=== PATIENT | male | born 1970 | race Caucasian/White ===

== ENCOUNTER 2017-07-30 21:15 | Emergency (ER) | payer BC ==
[2017-07-30] MEDS ORDERED: ASPIRIN PO ONE (21:38)
[2017-07-30 22:01] LABS: Basophils # (Auto) 0.1 K/mm3 (0.0-0.1); Basophils % (Auto) 0.9 % (0.0-1.8); Eosinophils # (Auto) 0.3 K/mm3 (0.0-0.4); Eosinophils % (Auto) 4.3 % (0.0-4.3); Hematocrit 42.8 % (35.5-45.6); Hemoglobin 14.1 gm/dl (11.8-15.2); Lymphocytes # (Auto) 2.5 K/mm3 (1.2-5.4); Lymphocytes % (Auto) 31.4 % (13.4-35.0); Mean Corpuscular HGB Conc 33 % (32-34); Mean Corpuscular Hemoglobin 28 pg (28-32); Mean Corpuscular Volume 85 fl (84-94); Monocytes # (Auto) 0.5 K/mm3 (0.0-0.8); Monocytes % (Auto) 5.8 % (0.0-7.3); Platelet Count 185 K/mm3 (140-440); Red Blood Count 5.06 M/mm3 (3.65-5.03); Red Cell Distribution Width 12.9 % (13.2-15.2)
[2017-07-30 22:22] LABS: BUN/Creatinine Ratio 20; Blood Urea Nitrogen 14 mg/dL (9-20); Calcium 9.3 mg/dL (8.4-10.2); Hemolysis Index 55
--- NOTE | 2017-07-31 09:38 | XRay Report ---
CHEST TWO VIEWS: 07/31/17 CLINICAL: Shortness of breath. COMPARISON: None FINDINGS: Normal heart. Prominent left hilum suggesting a possible left hilar mass. The pulmonary vessels are normal. The lungs are normally expanded and clear. Degenerative changes in the spine. IMPRESSION: Possible left hilar mass. Recommend CT chest without contrast to exclude mass. No CHF or pneumonia.
[2017-07-31] MEDS ORDERED: SUBLIMAZE IV ONE (10:09)
[2017-07-31] MEDS ORDERED: NACL 0.9% 500 ML 500 ML IV ONE (10:09)
--- NOTE | 2017-07-31 10:15 | Emergency Department Report ---
ED General Adult HPI - General Chief complaint: Chest Pain Stated complaint: CP; SOB Time Seen by Provider: 07/31/17 10:05 Source: patient, RN notes reviewed Mode of arrival: Ambulatory Limitations: No Limitations - History of Present Illness Initial comments: This is a 47-year-old male, the patient is previously unknown to this provider, the patient endorses a history of left thoracic pain which has been present for a few days. Contrary to what is documented in triage note, patient denies chest pain, and he denies severe shortness of breath. He denies pulmonary embolus DVT risk factors, he denies like pain and leg swelling, hematemesis and bright red blood per rectum, he denies night sweats, and he denies unintentional weight loss, and he denies fatigue. His pain is achy, and does not have exacerbating or relieving factors, and he indicates that it does not radiate anywhere. Lower abdominal pain, and no urinary symptoms. -: Gradual Location: back Radiation: non-radiation Severity scale (0 -10): 4 Consistency: intermittent Improves with: none Worsens with: none Associated Symptoms: denies other symptoms. denies: confusion, chest pain, cough, diaphoresis, fever/chills, headaches, loss of appetite, malaise, nausea/ vomiting, rash, seizure, shortness of breath, syncope, weakness - Related Data Previous Rx's Medication Instructions Recorded Last Taken Type Acetaminophen [Tylenol Arthritis] 650 mg PO Q6HR PRN #30 tablet.er 07/31/17 Unknown Rx Ibuprofen [Motrin] 600 mg PO Q8H PRN #30 tablet 07/31/17 Unknown Rx Ondansetron [Zofran Odt] 4 mg PO Q8HR PRN #20 tab.rapdis 07/31/17 Unknown Rx Allergies Allergy/AdvReac Type Severity Reaction Status Date / Time No Known Allergies Allergy Verified 07/30/17 21:38 ED Review of Systems ROS: Stated complaint: CP; SOB Other details as noted in HPI ED Past Medical Hx - Past Medical History Previous Medical History?: No - Surgical History Past Surgical History?: No - Social History Smoking Status: Current Every Day Smoker Substance Use Type: None - Medications Home Medications: Home Medications Medication Instructions Recorded Confirmed Last Taken Type Acetaminophen [Tylenol Arthritis] 650 mg PO Q6HR PRN #30 tablet.er 07/31/17 Unknown Rx Ibuprofen [Motrin] 600 mg PO Q8H PRN #30 tablet 07/31/17 Unknown Rx Ondansetron [Zofran Odt] 4 mg PO Q8HR PRN #20 tab.rapdis 07/31/17 Unknown Rx ED Physical Exam - General Limitations: No Limitations General appearance: alert, in no apparent distress - Head Head exam: Present: atraumatic, normocephalic - Eye Eye exam: Present: normal appearance, EOMI - ENT ENT exam: Present: normal exam, normal orophraynx, mucous membranes moist, normal external ear exam - Neck Neck exam: Present: normal inspection - Respiratory Respiratory exam: Present: normal lung sounds bilaterally. Absent: respiratory distress - Cardiovascular Cardiovascular Exam: Present: regular rate, normal rhythm, normal heart sounds. Absent: systolic murmur, diastolic murmur, rubs, gallop - GI/Abdominal GI/Abdominal exam: Present: soft, normal bowel sounds. Absent: distended, tenderness, guarding, rebound, rigid, pulsatile mass - Rectal Rectal exam: Present: deferred - Extremities Exam Extremities exam: Present: normal inspection, full ROM, normal capillary refill. Absent: tenderness, pedal edema, joint swelling - Back Exam Back exam: Present: normal inspection, full ROM. Absent: tenderness, CVA tenderness (R), paraspinal tenderness, vertebral tenderness - Neurological Exam Neurological exam: Present: alert, oriented X3, CN II-XII intact, normal gait, other (Extraocular movements intact. Tongue midline. No facial droop. Facial sensation intact to light touch in the V1, V2, V3 distribution bilaterally. 5 and 5 strength in 4 extremities.. Sensation is intact to light touch in 4 extremities.). Absent: motor sensory deficit - Psychiatric Psychiatric exam: Present: normal affect, anxious - Skin Skin exam: Present: warm, dry, intact, normal color. Absent: rash ED Course Vital Signs 07/30/17 07/31/17 07/31/17 21:34 03:19 07:42 Temperature 98.5 F 98.0 F 98.3 F Pulse Rate 76 76 83 Respiratory 18 20 16 Rate Blood Pressure 166/94 154/105 156/97 Blood Pressure [Right] O2 Sat by Pulse 97 98 100 Oximetry 07/31/17 07/31/17 09:05 12:57 Temperature Pulse Rate 66 82 Respiratory 20 18 Rate Blood Pressure Blood Pressure 148/98 140/77 [Right] O2 Sat by Pulse 97 97 Oximetry ED Medical Decision Making - Lab Data Result diagrams: 07/30/17 21:46 07/30/17 21:46 Vital Signs 07/30/17 07/31/17 07/31/17 21:34 03:19 07:42 Temperature 98.5 F 98.0 F 98.3 F Pulse Rate 76 76 83 Respiratory 18 20 16 Rate Blood Pressure 166/94 154/105 156/97 Blood Pressure [Right] O2 Sat by Pulse 97 98 100 Oximetry 07/31/17 09:05 Temperature Pulse Rate 66 Respiratory 20 Rate Blood Pressure Blood Pressure 148/98 [Right] O2 Sat by Pulse 97 Oximetry Lab Results 07/30/17 07/30/17 07/31/17 Range/Units 21:46 21:46 00:16 WBC 7.8 (4.5-11.0) K/mm3 RBC 5.06 H (3.65-5.03) M/mm3 Hgb 14.1 (11.8-15.2) gm/dl Hct 42.8 (35.5-45.6) % MCV 85 (84-94) fl MCH 28 (28-32) pg MCHC 33 (32-34) % RDW 12.9 L (13.2-15.2) % Plt Count 185 (140-440) K/mm3 Lymph % (Auto) 31.4 (13.4-35.0) % Day % (Auto) 5.8 (0.0-7.3) % Eos % (Auto) 4.3 (0.0-4.3) % Baso % (Auto) 0.9 (0.0-1.8) % Lymph # 2.5 (1.2-5.4) K/mm3 Day # 0.5 (0.0-0.8) K/mm3 Eos # 0.3 (0.0-0.4) K/mm3 Baso # 0.1 (0.0-0.1) K/mm3 Seg Neutrophils % 57.6 (40.0-70.0) % Seg Neutrophils # 4.5 (1.8-7.7) K/mm3 Sodium 138 (137-145) mmol/L Potassium 4.6 (3.6-5.0) mmol/L Chloride 97.2 L (98-107) mmol/L Carbon Dioxide 28 (22-30) mmol/L Anion Gap 17 mmol/L BUN 14 (9-20) mg/dL Creatinine 0.7 L (0.8-1.5) mg/dL Estimated GFR > 60 ml/min BUN/Creatinine Ratio 20 % Glucose 108 H (75-100) mg/dL Calcium 9.3 (8.4-10.2) mg/dL Troponin T < 0.010 < 0.010 (0.00-0.029) ng/mL Urine Color (Yellow) Urine Turbidity (Clear) Urine pH (5.0-7.0) Ur Specific [place] (1.003-1.030) Urine Protein (Negative) mg/dL Urine Glucose (UA) (Negative) mg/dL Urine Ketones (Negative) mg/dL Urine Blood (Negative) Urine Nitrite (Negative) Urine Bilirubin (Negative) Urine Urobilinogen (<2.0) mg/dL Ur Leukocyte Esterase (Negative) Urine WBC (Auto) (0.0-6.0) /HPF Urine RBC (Auto) (0.0-6.0) /HPF Urine Mucus /HPF 07/31/17 07/31/17 Range/Units 03:17 10:33 WBC (4.5-11.0) K/mm3 RBC (3.65-5.03) M/mm3 Hgb (11.8-15.2) gm/dl Hct (35.5-45.6) % MCV (84-94) fl MCH (28-32) pg MCHC (32-34) % RDW (13.2-15.2) % Plt Count (140-440) K/mm3 Lymph % (Auto) (13.4-35.0) % Day % (Auto) (0.0-7.3) % Eos % (Auto) (0.0-4.3) % Baso % (Auto) (0.0-1.8) % Lymph # (1.2-5.4) K/mm3 Day # (0.0-0.8) K/mm3 Eos # (0.0-0.4) K/mm3 Baso # (0.0-0.1) K/mm3 Seg Neutrophils % (40.0-70.0) % Seg Neutrophils # (1.8-7.7) K/mm3 Sodium (137-145) mmol/L Potassium (3.6-5.0) mmol/L Chloride (98-107) mmol/L Carbon Dioxide (22-30) mmol/L Anion Gap mmol/L BUN (9-20) mg/dL Creatinine (0.8-1.5) mg/dL Estimated GFR ml/min BUN/Creatinine Ratio % Glucose (75-100) mg/dL Calcium (8.4-10.2) mg/dL Troponin T < 0.010 (0.00-0.029) ng/mL Urine Color Yellow (Yellow) Urine Turbidity Clear (Clear) Urine pH 5.0 (5.0-7.0) Ur Specific [place] 1.024 (1.003-1.030) Urine Protein <15 mg/dl (Negative) mg/dL Urine Glucose (UA) Neg (Negative) mg/dL Urine Ketones Neg (Negative) mg/dL Urine Blood Neg (Negative) Urine Nitrite Neg (Negative) Urine Bilirubin Neg (Negative) Urine Urobilinogen < 2.0 (<2.0) mg/dL Ur Leukocyte Esterase Neg (Negative) Urine WBC (Auto) 1.0 (0.0-6.0) /HPF Urine RBC (Auto) 2.0 (0.0-6.0) /HPF Urine Mucus Few /HPF - EKG Data -: EKG Interpreted by Sd EKG shows normal: sinus rhythm Rate: normal - EKG Data 07/31/17 12:05 EKG #1 demonstrates sinus, 71 bpm, normal intervals, normal axis, not morphologically consistent with ST elevation myocardial infarction, repeat EKG is also unchanged and unremarkable - Radiology Data Radiology results: report reviewed, image reviewed Print Report Referring Physician: MICHELLE MARINELLI Patient Name: ARMIN FLORES Date of : 1970 Sex: Male Report Date: 2017-07-31 Report Status: Finalized Findings [facility] [address] [place] [address] Cat Scan Report Signed Patient: ARMIN FLORES JR MR#: [id number] : 1970 Acct:[id number] Age/Sex: 47 / M ADM Date: 07/30/17 Loc: ED Attending Dr: Ordering Physician: MICHELLE MARINELLI MD Date of Service: 07/31/17 Procedure(s): CT angio chest Accession Number(s): [id number] cc: MIHCELLE MARINELLI MD CTA CHEST WITH CONTRAST: 07/31/17 10:09:00 CLINICAL: Left chest pain. TECHNIQUE: PE protocol with volumetric acquisition and 1.25 mm scan reconstructions after the uneventful intravenous injection of 100 cc Omnipaque 350. Consent was obtained prior to the administration of contrast. Volume rendered images of the pulmonary vasculature were obtained and reviewed. FINDINGS: Satisfactory opacification of the pulmonary arteries and no pulmonary artery thrombus identified. Normal heart and aorta. The lungs are clear. No airspace disease or pleural effusion. No pulmonary nodule or mass. A right hilar lymph node (or nodes) measures 2.6 x 1.3 cm. A left hilar lymph node measures 1.2 x 1.2 cm. In AP window lymph node measures 1.5 x 1.0 cm. No other mediastinal lymph nodes are identified. Normal thyroid, trachea and esophagus. The upper abdomen is remarkable for a few prominent celiac lymph nodes. A portal caval lymph node is the largest upper abdominal lymph node and measures 2.1 x 1.7 cm. The bones and soft tissues are normal. IMPRESSION: No pulmonary embolus. Nonspecific mildly enlarged hilar lymph nodes and upper abdominal lymph nodes. Transcribed By: REF Dictated By: RON DODD MD Electronically Authenticated By: RON DODD MD Signed Date/Time: 07/31/17 113 DD/ 112 TD/TT: 07/31/17 1132 - Medical Decision Making Differential diagnosis, including not limited to: Pulmonary embolus, pneumonia, pleuritis, myocarditis, pericarditis X Assessment and plan: 47-year-old male, who has no pulmonary embolus or DVT risk factors, low risk by well's criteria, who presents with a complaint of nontraumatic left sided posterior thoracic pain. He denies night sweats, fevers , chills, unintentional weight loss and constitutional symptoms. To me, the patient makes no complaint of chest pain, no complaint of shortness of breath, his EKG is morphologically unremarkable, troponins were negative 3, and based on the patient's history and physical exam, I find the patient to be low risk by GLADYS score, low risk by heart score. Urinalysis negative, no abdominal tenderness, CT scan of the chest x-rays nonspecific adenopathy. Patient felt improved after pain medication and IV fluids. Patient is given a copy of his CT scan report, He is also given a disc with his CT scan images, and he will be referred to outpatient primary care, pulmonology, oncology for further evaluation and management for his undifferentiated adenopathy. Return precautions are reviewed. Critical care attestation.: If time is entered above; I have spent that time in minutes in the direct care of this critically ill patient, excluding procedure time. ED Disposition Clinical Impression: Adenopathy Disposition: DC-01 TO HOME OR SELFCARE Is pt being admited?: No Does the pt Need Aspirin: No Condition: Stable Instructions: Lymphadenopathy (ED) Additional Instructions: Laboratory studies were unremarkable. CT scan of the chest demonstrated nonspecific lymph nodes in the chest and upper abdominal region. Patient is given a copy of CT scan report, and a disc with his CT scan images. I recommend that the patient follow-up with either an outpatient primary care doctor, oncologist or learning development specialist within the next 2 weeks to have these abnormalities further addressed and evaluated. Not following up in a timely fashion as recommended may result in undiagnosed tumor, cancer, malignancy. Return to the ER right away with new pain, worsened pain, migration of pain, fevers, chills, lethargy, irritability, projectile vomiting, change in mental status, confusion, inability to tolerate liquid feeds. Dr. Crocker is a local primary care doctor. Dr. Delvalle is a local learning development specialist. Dr. Meza is a local adolescent medicine specialist. Prescriptions: Acetaminophen [Tylenol Arthritis] 650 mg PO Q6HR PRN #30 tablet.er PRN Reason: Pain Ibuprofen [Motrin] 600 mg PO Q8H PRN #30 tablet PRN Reason: Pain Ondansetron [Zofran Odt] 4 mg PO Q8HR PRN #20 tab.rapdis PRN Reason: Nausea Referrals: PRIMARY CARE, [Primary Care Provider] - 3-5 Days MARIA C CROCKER MD [Staff Physician] - 3-5 Days PADMINI MEZA MD [Staff Physician] - 3-5 Days ANNETTE DELVALLE MD [Staff Physician] - 3-5 Days
[2017-07-31] MEDS ORDERED: NACL ONE (10:31)
[2017-07-31 11:13] LABS: Bilirubin,Urine NEG (Negative); Blood,Urine NEG (Negative); Color,Urine Yellow (Yellow); Mucus,Urine FEW /HPF; Nitrite,Urine NEG (Negative); Protein,Urine <15 mg/dL mg/dL (Negative); Urobilinogen,Urine < 2.0 mg/dL (<2.0)
--- NOTE | 2017-07-31 11:49 | Cat Scan Report ---
CTA CHEST WITH CONTRAST: 07/31/17 10:09:00 CLINICAL: Left chest pain. TECHNIQUE: PE protocol with volumetric acquisition and 1.25 mm scan reconstructions after the uneventful intravenous injection of 100 cc Omnipaque 350. Consent was obtained prior to the administration of contrast. Volume rendered images of the pulmonary vasculature were obtained and reviewed. FINDINGS: Satisfactory opacification of the pulmonary arteries and no pulmonary artery thrombus identified. Normal heart and aorta. The lungs are clear. No airspace disease or pleural effusion. No pulmonary nodule or mass. A right hilar lymph node (or nodes) measures 2.6 x 1.3 cm. A left hilar lymph node measures 1.2 x 1.2 cm. In AP window lymph node measures 1.5 x 1.0 cm. No other mediastinal lymph nodes are identified. Normal thyroid, trachea and esophagus. The upper abdomen is remarkable for a few prominent celiac lymph nodes. A portal caval lymph node is the largest upper abdominal lymph node and measures 2.1 x 1.7 cm. The bones and soft tissues are normal. IMPRESSION: No pulmonary embolus. Nonspecific mildly enlarged hilar lymph nodes and upper abdominal lymph nodes.
[2017-07-31 12:58] VITALS: BP 140/77
== END 2017-07-31 12:59 | disposition home or self-care (01) ==
LOC: ED 21:15
DX: R59.9 Enlarged lymph nodes, unspecified (principal); F17.200 Nicotine dependence, unspecified, uncomplicated
CPT/HCPCS: 36415; 71020; 71275; 80048; 81001; 84484; 85025; 93005; 93010; 96374; 99285; J3010; J7040; Q9967

== ENCOUNTER 2017-10-04 09:55 | Outpatient (CLI) | payer BC ==
[2017-10-04 10:52] LABS: Blood Urea Nitrogen 10 mg/dL (9-20)
--- NOTE | 2017-10-04 14:38 | Cat Scan Report ---
CT CHEST WITH CONTRAST: HISTORY: Enlarged lymph nodes. COMPARISON: CTA chest dated 07/31/17. TECHNIQUE: Helical CT in 1.25mm intervals following IV contrast. Sagittal and coronal reformatted images. FINDINGS: Thyroid gland: Normal. Tracheobronchial tree: Normal. Esophagus: Normal. Heart: Normal. Pericardium: Normal. Mediastinum: Borderline to mildly enlarged lymph nodes are again noted and unchanged. An AP window lymph node measures 1.5 x 1.1 cm. A right hilar lymph node measures 1.9 x 1.0 cm. A celiac axis lymph node in the upper abdomen measures 1.7 x 1.2 cm. Lung Siu: Normal. Pleural Spaces: Normal. Musculoskeletal: Normal. IMPRESSION: There are a few scattered borderline to mildly enlarged lymph nodes in the mediastinum and upper abdomen which are unchanged since CTA chest dated 07/31/17. The etiology of these are unclear. These may represent reactive lymph nodes. No new lymph nodes or chest mass is identified. Consider surveillance.
== END 2017-10-04 09:56 | disposition home or self-care (01) ==
LOC: CT 09:55
PROVIDERS: ATTEND Internal Medicine Pulmonary Disease
DX: R59.0 Localized enlarged lymph nodes (principal); I10 Essential (primary) hypertension
CPT/HCPCS: 36415; 71260; 82565; 84520; Q9967

== ENCOUNTER 2017-11-18 07:02 | Outpatient (CLI) | payer BC ==
--- NOTE | 2017-11-18 10:27 | PET Report ---
PET SB TO MT INITIAL: HISTORY: Localize enlarged lymph nodes. TECHNIQUE: 14.3 millicuries F-18 FDG was administered intravenously. Noncontrast CT images and PET images were obtained from the skull base to the proximal thighs. Fused images were reviewed on a workstation. The patient's blood glucose level measured 93. COMPARISON: CT chest with contrast dated 10/04/17. FINDINGS: BRAIN: physiologic FDG uptake in the imaged brain. NECK: physiologic FDG uptake. MEDIASTINUM: Borderline enlarged mediastinal lymph nodes are unchanged since the previous CT chest with contrast and demonstrate max SUV values measuring less than 1.5. LUNGS: physiologic FDG uptake. PLEURA/PERICARDIUM: physiologic FDG uptake. THORACIC LYMPH NODES: physiologic FDG uptake. HEPATOBILIARY: physiologic FDG uptake. Mean liver SUV measures 2.9. PANCREAS: physiologic FDG uptake. SPLEEN: physiologic FDG uptake. ADRENAL GLANDS: physiologic FDG uptake. KIDNEYS/RENAL COLLECTING SYSTEMS: physiologic FDG uptake. BOWEL/MESENTERY: physiologic FDG uptake. PELVIC VISCERA: physiologic FDG uptake. ABDOMINAL/PELVIC LYMPH NODES: physiologic FDG uptake. Borderline celiac axis lymph nodes are unchanged and demonstrate max SUV value measuring less than 1.5 MUSCULOSKELETAL: physiologic FDG uptake. IMPRESSION: Negative PET/CT.
== END 2017-11-18 07:03 | disposition home or self-care (01) ==
LOC: PET 07:02
PROVIDERS: ATTEND Internal Medicine Hematology
DX: R59.0 Localized enlarged lymph nodes (principal)
CPT/HCPCS: 78815; 82962; A9552